=== PATIENT | female | born 1975 | race Caucasian/White ===

== ENCOUNTER → 2017-08-16 | Outpatient (CLI) | payer OTHER | END | disposition home or self-care (01) | LOC: KCIC 09:01 | DX: M54.5 Low back pain (principal) | CPT/HCPCS: 72110 ==

== ENCOUNTER → 2017-08-16 | Outpatient (CLI) | payer OTHER | END | disposition home or self-care (01) | LOC: KCIC MAMMO 09:23 | DX: Z12.31 Encounter for screening mammogram for malignant neoplasm of breast (principal) | CPT/HCPCS: 77063; 77067 ==

== ENCOUNTER → 2018-04-15 | Outpatient (CLI) | payer OTHER ==
--- NOTE | 2018-04-15 17:26 | KCIC ---
Right breast diagnostic digital mammograms with 3D Tomosynthesis: Reason for examination: Right breast lump with tenderness starting one month ago lasting for a couple weeks. History of prior benign biopsy at this site. Comparison is made to previous studies dated 08/16/2017 and 06/23/2016. Right breast mammograms in CC and oblique projections were obtained with 2-D imaging and 3-D tomosynthesis imaging on a Siemens Inspiration unit and reviewed on the workstation. Interpretation was made with the benefit of CAD. The skin and nipple show no abnormalities. No abnormal axillary lymph nodes are seen. The breast parenchyma shows scattered fibroglandular density. (Breast density: Category B.) There appears to be a biopsy site the 10:00 B position which corresponds to the area of clinical concern. This does not show definite change. Further evaluation however with ultrasound will follow. There are no other dominant masses, suspicious calcifications or architectural distortions. Some benign calcifications are present. Impression: Biopsy site corresponds to the area of clinical concern. Ultrasound to follow. BI-RADS Category 0: Incomplete. Needs additional imaging evaluation. Right breast ultrasound: Ultrasound examination was performed with attention to the upper outer quadrant and axilla. In the 10:00 position 7 cm from the nipple corresponding to the area of clinical concern, there is a hypoechoic circumscribed lesion measuring 6.8 x 4.3 mm in greatest dimension and line in parallel orientation. The appearance is consistent with a small fibroadenoma. No other cystic or solid lesions are seen in the area. No abnormal appearing lymph nodes are seen in the axilla. IMPRESSION: 6.8 x 4.3 cm hypoechoic circumscribed nodule probably representing a fibroadenoma located in the area of clinical concern at the 10:00 position 7 cm from the nipple. Recommend reevaluation with ultrasound in 6 months. BI-RADS Category 3: Probably Benign. "Our facility is accredited by the [employer] Mammography Program." This patient's information has been entered into a reminder system for the patient to be notified with the results of her examination and a target date for the next mammogram. Electronically signed by: Ariadna Strickland MD (04/15/2018 5:22 PM) [id number]
== END | disposition home or self-care (01) ==
LOC: KCIC MAMMO 12:48
PROVIDERS: ATTEND Family Medicine
DX: N63.11 Unspecified lump in the right breast, upper outer quadrant (principal)
CPT/HCPCS: 76641; 77065; G0279; 77061

== ENCOUNTER → 2018-06-03 | Outpatient (CLI) | payer OTHER ==
--- NOTE | 2018-06-03 14:30 | KCIC ---
MR of the sacrum HISTORY: Chronic tailbone pain. No known injury. TECHNIQUE: Routine multiplanar sequences are obtained through the sacrum. FINDINGS: Minimal marrow edema at the sacrococcygeal junction, but so subtle as to be of questionable significance. No evidence of an acute fracture. No bone lesion or aggressive bone destruction. Sacroiliac joints are intact. Limited visualization of lower spine demonstrates degenerative spondylosis with disc bulging or protrusion. Trace free pelvic fluid, can be physiologic in a female patient of this age. IMPRESSION: No evidence of acute fracture or bone destruction. Minimal marrow edema at the sacrococcygeal junction, questionable significance but in the context of the symptoms, a subtle marrow contusion or mild stress injury could be considered. Electronically signed by: Isidro Perez MD (06/03/2018 2:26 PM) [facility]
== END | disposition home or self-care (01) ==
LOC: KCIC MRI 11:25
PROVIDERS: ATTEND Physician Assistant Medical
DX: M47.898 Other spondylosis, sacral and sacrococcygeal region (principal); M53.3 Sacrococcygeal disorders, not elsewhere classified; R60.0 Localized edema
CPT/HCPCS: 72195

== ENCOUNTER → 2018-07-09 | Outpatient (CLI) | payer OTHER ==
[~2018-07-09] MED LIST: ESCITALOPRAM OX10 MG PO
--- NOTE | 2018-07-09 12:17 | PAIN ---
DATE OF SERVICE: 07/09/2018 INITIAL CONSULTATION FOR PAIN CLINIC CHIEF COMPLAINT: Tailbone pain. HISTORY OF PRESENT ILLNESS: This is a 43-year-old female who presents with history of pain starting in 10/2016 after sitting for a prolonged period on a hard bench bleacher, has pain into the tailbone. Since that time, the patient reports it is little worse, on and off in intensity, but now is becoming more constant over the past 6 months or so in the tailbone itself, worse with changing positions, standing to sitting, sitting to standing, also sitting for a prolonged period. She has been using a coccygeal pillow in a donut type cushion, which is not relieving the pain significantly. The patient reports the pain is throbbing with some tingling, aching in the coccygeal region in the tip of the tailbone. The patient reports she sits at work, which makes it worse when she stands up as when she is sitting, worse when she is back at work and sitting down. She had weight loss surgery in 08/2017, 77 pounds weight loss thus far which has helped to some extent, but the pain is still persistent. The patient reports it does not generally awaken her up from sleep at night, does not affect her bowel or bladder control or ability to walk, but the pain is just there. She has been putting up with it. The patient reports she has had physical therapy in 05/2018, which was not helpful; also had chiropractic treatment, which is ongoing, not helpful as well and doing exercises on her own continuously and still doing this, but not decreasing the pain to any significant extent. The patient reports no radiation to the lower extremities, no loss of motor function, no bowel or bladder incontinence. The patient reports her disability rating from 0-10, 10 being the worst, is a 0 with family and home responsibilities, sexual behavior, self-care and life support activities, 7 with occupational activities, 1 with social activity and 3 with recreational activities. The patient did MRI scan of the sacrum showing no evidence of acute fracture or bone destruction, minimal marrow edema at the sacrococcygeal junction, questionable significance, but in the context of symptoms, subtle marrow contusion or mild stress injury could be considered. PAST MEDICAL HISTORY: Significant for previous weight loss surgery, right breast lumpectomy and 2 C-sections. Otherwise, the patient has been in good health. CURRENT MEDICATIONS: Include escitalopram 1 tablet daily for anxiety. ALLERGIES: The patient has no known drug allergies. FAMILY HISTORY: Significant for pancreatic cancer in her father. SOCIAL HISTORY: The patient does not smoke. Drinks alcohol 2-3 times a month on the most. Does not use any illegal, illicit or recreational drugs. She is , lives with her spouse, has 2 children living at home. Lives locally in [place], [place]. Works in a seated occupational position. REVIEW OF SYSTEMS: The patient's review of systems is positive for those items mentioned in history of present illness. All systems reviewed and otherwise negative. It is complete, full and well documented on the patient's chart. PHYSICAL EXAMINATION: VITAL SIGNS: Today, the patient's blood pressure is /80, pulse 60, respirations 18, temperature is 98.2 degrees Fahrenheit, height is 5 feet 4 inches, weight is 148 pounds. GENERAL: The patient is awake, alert, oriented, appropriate, very pleasant demeanor. HEENT: Head shows normocephalic, atraumatic. Extraocular movements are intact and symmetrical. Oral cavity: Mucous membranes are moist and pink. Dentition is intact. NECK: Shows anterior throat supple without palpable lymphadenopathy noted. Swallow reflex is symmetrical. CHEST: Shows normal on inspection. Breath sounds are clear to auscultation bilaterally. HEART: Shows S1, S2 clear. No murmurs auscultated. ABDOMEN: Soft, nontender, nondistended. No palpable organomegaly is noted. No rebound or guarding demonstrated. BACK: Shows spine grossly in the midline. Normal appearing thoracic kyphosis and lumbar lordotic curvature. The patient has full rotational motion of lumbar spine, both laterally as well as extension and flexion without difficulty. The patient shows no tenderness over the spinous processes, sacrum or sacroiliac regions. Over the sacrococcygeal junction, however, very inferiorly very tender and very exquisitely tender with severe tenderness. The patient withdrawing from the examining hand at the sacrococcygeal ligament and over the coccyx itself was very, very tender as well. No erythema is noted. No drainage, no lesions, no sores, rashes or bruising. EXTREMITIES: The patient's lower extremities show deep tendon reflexes 2+ in the patellar and 1+ tendo-calcaneus tendons, are equal. Motor exam is strong with 5/5 dorsiflexion, extension, quadriceps and hamstring flexion and symmetrical. Peripheral pulses are 1+ posterior tibia. No peripheral edema is noted. The patient's lower extremities are warm and dry to touch, equal in color and appearance. Straight leg raise noted to be negative for reproduction of any radicular symptoms. Gaenslen's and Manoj's maneuvers are negative bilaterally as well. The patient is able to stand, stand on her toes, walks with a normal appearing gait, does not appear to have any favoring right or left lower extremity, is not using any assistive devices to ambulate. SKIN: Shows warm and dry. Good turgor. No edema. No sores, rashes or bruising. IMPRESSION: 1. This is a 43-year-old female with approximately a year and a half history of pain in the sacrococcygeal ligament after prolonged sitting injury with sacrococcygeal ligament sprain. 2. History of recent bariatric surgery. PLAN: Options were discussed with the patient including conservative medical management, physical therapies, interventional techniques. She does physical therapy. She is doing exercise daily. She would like to pursue interventional techniques. We discussed a sacrococcygeal ligament injection as a small bursa or joint injection to decrease any inflammatory response at the sacrococcygeal injury from sacrococcygeal ligament sprain. The patient would like to proceed with this. We will wait for preauthorization from her insurance provider. The patient will try Medrol Dosepak in the meantime, was given instructions as well as side effects to be aware of with the medication and will follow up in approximately 2 weeks. We will plan on a sacrococcygeal ligament injection at that time. SHAWN VILLALPANDO MD DR: JEFERSON/ten JOB#: [id number] / [id number]
== END | disposition home or self-care (01) ==
LOC: PNCL 09:26
PROVIDERS: ATTEND Anesthesiology
DX: S33.6XXA Sprain of sacroiliac joint, initial encounter (principal); M53.3 Sacrococcygeal disorders, not elsewhere classified; Z83.79 Family history of other diseases of the digestive system; X58.XXXA Exposure to other specified factors, initial encounter; Y93.89 Activity, other specified; Y92.89 Other specified places as the place of occurrence of the external cause; Y99.8 Other external cause status
CPT/HCPCS: G0463

== ENCOUNTER → 2018-10-30 | Outpatient (CLI) | payer OTHER ==
--- NOTE | 2018-10-31 14:08 | KCIC ---
Bilateral diagnostic digital mammograms with 3-D tomosynthesis: Reason for examination: Follow-up nodule. Comparison is made to previous studies dated 04/15/2018 and 08/16/2017. Bilateral mammograms in CC and oblique projections were obtained with 2-D imaging and 3-D tomosynthesis imaging on a Siemens Inspiration unit and reviewed on the workstation. Interpretation was made with the benefit of CAD. The skin and nipples show no abnormalities. No abnormal axillary lymph nodes are seen. The breast parenchyma is heterogeneously dense. (Breast density: Category C.) There continues to be small nodular density at the 10:00 B position without definite change. There is also some nodularity posterior medially in the left breast. There are no other dominant masses, suspicious calcifications or architectural distortion. Benign calcifications are present. Impression: Continued presence of some nodularity at the 10:00 B position of the right breast. Subtle nodularity to the parenchyma posterior medially in the left breast seen best on CC view. Ultrasound to follow. Your patient's mammogram demonstrates that she has dense breast tissue (breast density category C or D), which could hide abnormalities, and if she has other risk factors for breast cancer that have been identified, she might benefit from supplemental screening tests that may be suggested by you as her ordering physician. Dense breast tissue, in and of itself, is a relatively common condition. Therefore, this information is not provided to cause undue concern, but rather to raise your awareness and to promote discussion with your patient regarding the presence of other risk factors, in addition to dense breast tissue. Your patient's mammography results will be sent to her. BI-RAD Category 0: Incomplete. Needs additional imaging evaluation. Bilateral breast ultrasound: Comparison is made to previous right breast examination dated 04/15/2018. In the right breast at the 10:00 position 7 cm from the nipple, there continues to be hypoechoic circumscribed lesion in parallel orientation measuring 5.1 mm in size consistent with fibroadenoma without significant change evident. There is a small lesion consistent with a cyst at 10:00 position 4 cm from the nipple measuring 3.2 mm in size. At the 10:00 position 4.5 cm from the nipple, there is a 4.1 mm lesion consistent with cysts. No other cystic or solid lesions are seen. No abnormal appearing lymph nodes are seen in the right axilla. In the left breast, there appears to be a small 1.8 mm hypoechoic fibrocystic type lesion at the 11:00 position 9 cm from the nipple. No other cystic or solid lesions are seen. No abnormal appearing lymph nodes are seen in the left axilla. IMPRESSION: No change in the small nodule at the 10:00 position 7 cm from the nipple which probably represents a fibroadenoma. Small cysts at the 10:00 position 4 cm and 4.5 cm from the nipple. Recommend routine mammographic follow-up. BI-RADS Category 2: Benign. "Our facility is accredited by the [employer] Mammography Program." This patient's information has been entered into a reminder system for the patient to be notified with the results of her examination and a target date for the next mammogram. Electronically signed by: Ariadna Strickland MD (10/31/2018 2:06 PM) [facility]
== END | disposition home or self-care (01) ==
LOC: KCIC MAMMO 09:47
PROVIDERS: ATTEND Nurse Practitioner Family
DX: N60.01 Solitary cyst of right breast (principal)
CPT/HCPCS: 76641; 77066; G0279; 77062

== ENCOUNTER → 2020-01-05 | Outpatient (CLI) | payer OTHER ==
--- NOTE | 2020-01-05 17:34 | KCIC ---
Bilateral digital screening mammograms with 3-D tomosynthesis: Reason for examination: Routine screening. Comparison is made to previous studies dated back to 04/19/2015. Bilateral mammograms in CC and oblique projections were obtained with 2-D imaging and 3-D tomosynthesis imaging on a Siemens Inspiration unit and reviewed on the workstation. Interpretation was made with the benefit of CAD. The skin and nipples show no abnormalities. No abnormal axillary lymph nodes are seen. The breast parenchyma is heterogeneously dense. (Breast density: Category C.) There appears be some nodular increased density posterior laterally in the right breast seen only on cc view probably in the upper outer quadrant. Further evaluation with ultrasound is recommended. There are no other dominant masses, suspicious calcifications or architectural distortion. Benign calcifications are present. Impression: Nodularity posterior laterally in the right breast seen on cc view probably in the upper outer quadrant. Recommend further evaluation with ultrasound. Your patient's mammogram demonstrates that she has dense breast tissue (breast density category C or D), which could hide abnormalities, and if she has other risk factors for breast cancer that have been identified, she might benefit from supplemental screening tests that may be suggested by you as her ordering physician. Dense breast tissue, in and of itself, is a relatively common condition. Therefore, this information is not provided to cause undue concern, but rather to raise your awareness and to promote discussion with your patient regarding the presence of other risk factors, in addition to dense breast tissue. Your patient's mammography results will be sent to her. BI-RAD Category 0: Incomplete. Needs additional imaging evaluation. "Our facility is accredited by the [employer] Mammography Program." This patient's information has been entered into a reminder system for the patient to be notified with the results of her examination and a target date for the next mammogram. Electronically signed by: Ariadna Strickland MD (01/05/2020 5:32 PM) [id number]
== END | disposition home or self-care (01) ==
LOC: KCIC MAMMO 08:34
PROVIDERS: ATTEND Family Medicine
DX: Z12.31 Encounter for screening mammogram for malignant neoplasm of breast (principal); N64.89 Other specified disorders of breast
CPT/HCPCS: 77063; 77067

== ENCOUNTER → 2020-01-08 | Outpatient (CLI) | payer OTHER ==
--- NOTE | 2020-01-08 16:09 | RAD ---
DATE: 01/08/2020 3:30 PM EXAM: DIGITAL DIAGNOSTIC RT, BREAST RIGHT HISTORY: 44-year-old woman recalled from screening for nodularity in the upper outer right breast. She has a history of a benign surgical excisional biopsy in the upper outer right breast, by report was a fibroadenoma. COMPARISON: 08/16/2017, 10/30/2018 and 01/05/2020 mammograms. Right breast ultrasound of 10/30/2018. TECHNIQUE: Right CC and ML views of the breasts were performed. Targeted ultrasound of the right breast in the upper outer quadrant was also performed.. FINDINGS: Breast Density: SCATTERED The breast parenchyma shows scattered fibroglandular densities. Breast parenchyma level B Imaging was initially pursued with ultrasound showing a 7 mm parallel orientation oval nodule within an island of dense fibrous glandular tissue at the right 10:00 position 7.5 cm from the nipple. There has been no significant sonographic interval change from the previous ultrasound. mechanical engineering technologist noted this was close to the patient's surgical scar from previous excisional biopsy so I pursued additional imaging with a right diagnostic mammogram to confirm that the nodularity in the right breast correlated with the area of previous surgical excisional biopsy and the area of sonographic interest at today's visit. The 2 mammographic views of the right breast confirmed that the ultrasound finding correlated with the mammographic finding and was at the patient's previous surgical excisional biopsy scar. No suspicious masses, microcalcifications or architectural distortion is present to suggest malignancy.. IMPRESSION: Benign findings in the upper outer right breast. No evidence of malignancy. BI-RADS CATEGORY: 2 BENIGN FINDING(S) RECOMMENDED FOLLOW-UP: 12M 12 MONTH FOLLOW-UP Annual screening mammography is recommended, unless clinically indicated sooner based on symptoms or change in physical exam. Discussed with patient. PQRS compliance statement: Patient information was entered into a reminder system with a target due date 01/05/2021 for the next mammogram. Mammography is a sensitive method for finding small breast cancers, but it does not detect them all and is not a substitute for careful clinical examination. A negative mammogram does not negate a clinically suspicious finding and should not result in delay in biopsying a clinically suspicious abnormality. "Our facility is accredited by the [employer] Mammography Program."
== END | disposition home or self-care (01) ==
LOC: US 14:21
PROVIDERS: ATTEND Obstetrics & Gynecology
DX: R92.2 Inconclusive mammogram (principal); N63.11 Unspecified lump in the right breast, upper outer quadrant
CPT/HCPCS: 76641; 77065

== ENCOUNTER → 2021-07-20 | Outpatient (CLI) | payer OTHER ==
--- NOTE | 2021-07-20 14:36 | KCIC ---
Bilateral diagnostic digital mammograms with 3-D tomosynthesis: Reason for examination: Follow-up nodules. Comparison is made to previous studies dated back to 06/23/2016. Bilateral mammograms in CC and oblique projections were obtained with 2-D imaging and 3-D tomosynthes is imaging on a Siemens Inspiration unit and reviewed on the workstation. Interpretation was made wit h the benefit of CAD. The skin and nipples show no abnormalities. No abnormal axillary lymph nodes are seen. The breast par enchyma shows scattered fatty and fibroglandular density. (Breast density: Category B.) There continu es be some nodular asymmetry in the upper outer quadrant of the right breast. There are no new domina nt masses, suspicious calcifications or architectural distortion. Benign calcifications are present. Impression: Persistent nodular asymmetry in the upper outer quadrant of the right breast. Ultrasound to follow. BI-RAD Category 0: Incomplete. Needs additional imaging evaluation. Right breast ultrasound: Comparison is made to previous studies dated back to 04/15/2018. Ultrasound examination of the right breast and axilla was performed. At the 10:00 position 7 cm from the nipple, there continue to be 2 small hypoechoic circumscribed nod ules measuring 6.0 and 7.3 mm in greatest dimensions which remains stable. These likely represent sma ll fibroadenoma. There is also a small 6.1 mm hypoechoic nodule at the 11:00 position 6 cm from the n ipple which shows a slight decrease in size and probably represents a small fibrocystic lesion. There is also a small 2.9 mm hypoechoic fibrocystic type nodule at the 11:00 position 4 cm from the nipple which is stable. No suspicious-appearing nodules are seen. No abnormal appearing lymph nodes are see n in the axilla. IMPRESSION: Benign-appearing nodules consistent with fibroadenoma present in the 10:00 position. Small nodules consistent with small fibrocystic lesions at the 11:00 position which are stable. Recommend routine mammographic follow-up. BI-RADS Category 2: Benign. "Our facility is accredited by the [employer] Mammography [employer]." This patient's information has been entered into a reminder system for the patient to be notified wit h the results of her examination and a target date for the next mammogram. Electronically signed by: Ariadna Strickland MD (07/20/2021 2:34 PM) [facility]
== END ==
LOC: KCIC MAMMO 12:56
PROVIDERS: ATTEND Nurse Practitioner Family
DX: N63.11 Unspecified lump in the right breast, upper outer quadrant (principal); N64.89 Other specified disorders of breast
CPT/HCPCS: 76641; 77066; G0279; 77062

== ENCOUNTER → 2021-08-01 | Outpatient (CLI) | payer OTHER ==
--- NOTE | 2021-08-01 09:49 | RAD ---
CT ABDOMEN+PELVIS WO History: Left flank pain for 2 months. Comparison: Sacrum MRI 06/03/2018 Technique: Noncontrast CT of the abdomen. Findings: Partially calcified 1.2 cm right lower lobe granuloma. Additional calcified 5 mm right lower lobe gra nuloma. No pleural effusion or pericardial effusion. The liver, gallbladder pancreas, and adrenal glands are unremarkable. There are punctate calcificatio ns of the spleen consistent with granulomatous disease. No hydronephrosis or nephrolithiasis. Unremar kable ureters and bladder. Uterus and adnexa are unremarkable. Postsurgical changes along the greater curvature of the stomach compatible sleeve gastrectomy. The sm all bowel is unremarkable. Normal appendix. The colon is unremarkable. No pericolonic inflammatory ch anges. No abdominal pelvic adenopathy. Vasculature is within normal limits. No free air or free fluid. Davison us structures and soft tissues are unremarkable. Impression: 1. No acute findings in the abdomen and pelvis. No nephrolithiasis or hydronephrosis. 2. Granulomatous calcifications in the right lung base and spleen. ------ Exposure: One or more of the following individualized dose reduction techniques were utilized for thi s examination: 1. Automated exposure control 2. Adjustment of the mA and/or kV according to patient size 3. Use of iterative reconstruction technique. Electronically signed by: Odell Faria MD (08/01/2021 9:47 AM) [facility]
== END ==
LOC: CT 09:21
PROVIDERS: ATTEND Family Medicine
DX: J84.10 Pulmonary fibrosis, unspecified (principal); D73.89 Other diseases of spleen; Z98.890 Other specified postprocedural states
CPT/HCPCS: 74176